=== PATIENT | male | born 1970 | race Caucasian/White ===

== ENCOUNTER 2016-12-02 11:03 | Emergency (ER) | payer SELFPAY ==
[2016-12-02 11:08] VITALS: BP 130/83
--- NOTE | 2016-12-02 11:32 | ER Document Report ---
ED General - General Chief Complaint: Anxiety Stated Complaint: FAST HEART RATE, ANXIOUS Time Seen by Provider: 12/02/16 11:17 Mode of Arrival: Ambulatory Information source: Patient Notes: 46-year-old male presents to ED for anxiety. He says he has a history of anxiety and has been out of his medication for a month. States she has decreased sleep anxious all the time. Denies any history of suicidal ideations or homicidal ideation patient is respirations even and unlabored no acute distress but is acting restless throughout the examination. He is shaking arms and legs. States he has not been able to get into see his doctor because he does not have the money to pay the dr bill since he got laid off from work. He was told he had to pay the $80 Dr. fee upfront before he could be seen. TRAVEL OUTSIDE OF THE [place] IN LAST 30 DAYS: No - HPI Onset: Other - 3 weeks Onset/Duration: Gradual, Worse Quality of pain: Other - Pain anxious, nervous, and restless Associated symptoms: Other - Anxious, nervous, and restless Exacerbated by: Denies Relieved by: Denies Similar symptoms previously: Yes Recently seen / treated by doctor: No - Related Data Allergies/Adverse Reactions: No Known Allergies Allergy (Verified 12/02/16 11:08) Past Medical History - General Information source: Patient - Social History Smoking Status: Current Every Day Smoker Cigarette use (# per day): Yes - 1/2 ppd Chew tobacco use (# tins/day): No Smoking Education Provided: Yes - less than 2 min Frequency of alcohol use: None Drug Abuse: None Lives with: Alone Family History: CAD, COPD, Hyperlipidemia, Hypertension, Malignancy Patient has suicidal ideation: No Patient has homicidal ideation: No - Past Medical History Cardiac Medical History: Reports: None Pulmonary Medical History: Reports: None EENT Medical History: Reports: None Neurological Medical History: Reports: Hx Migraine Endocrine Medical History: Reports: None Renal/ Medical History: Reports: None Malignancy Medical History: Reports None GI Medical History: Reports: Hx Diverticulitis Musculoskeltal Medical History: Reports None Psychiatric Medical History: Reports: Hx Anxiety, Other - Panic attacks Traumatic Medical History: Reports: None Infectious Medical History: Reports: None Past Surgical History: Reports: Hx Bowel Surgery - Diverticulitis - Immunizations Immunizations up to date: Yes Hx Diphtheria, Pertussis, Tetanus Vaccination: Yes Review of Systems - Review of Systems Constitutional: No symptoms reported EENT: No symptoms reported Cardiovascular: No symptoms reported Respiratory: No symptoms reported Gastrointestinal: No symptoms reported Genitourinary: No symptoms reported Male Genitourinary: No symptoms reported Musculoskeletal: No symptoms reported Skin: No symptoms reported Hematologic/Lymphatic: No symptoms reported Neurological/Psychological: Anxiety -: Yes All other systems reviewed and negative Physical Exam - Vital signs Vitals: Temp Pulse Resp BP Pulse Ox 98.9 F 66 19 130/83 H 98 12/02/16 11:06 12/02/16 11:06 12/02/16 11:06 12/02/16 11:06 12/02/16 11:06 Interpretation: Normal - General General appearance: Appears well, Alert - HEENT Head: Normocephalic, Atraumatic Eyes: Normal Pupils: PERRL - Respiratory Respiratory status: No respiratory distress Chest status: Nontender Breath sounds: Normal Chest palpation: Normal - Cardiovascular Rhythm: Regular Heart sounds: Normal auscultation Murmur: No - Abdominal Inspection: Normal Distension: No distension Bowel sounds: Normal Tenderness: Nontender Organomegaly: No organomegaly - Back Back: Normal, Nontender - Extremities General upper extremity: Normal inspection, Nontender, Normal color, Normal ROM , Normal temperature General lower extremity: Normal inspection, Nontender, Normal color, Normal ROM , Normal temperature, Normal weight bearing. No: Doug's sign - Neurological Neuro grossly intact: Yes Cognition: Normal Orientation: AAOx4 Franklin Coma Scale Eye Opening: Spontaneous Lucila Coma Scale Verbal: Oriented Lucila Coma Scale Motor: Obeys Commands Franklin Coma Scale Total: 15 Speech: Normal Motor strength normal: LUE, RUE, LLE, RLE Sensory: Normal - Psychological Associated symptoms: Normal affect, Normal mood, Agitated, Anxious, Restlessness - Skin Skin Temperature: Warm Skin Moisture: Dry Skin Color: Normal Course - Re-evaluation Re-evalutation: 12/02/16 23:[address] Nunez as patient was requesting Xanax. Dr. atkins suggested that we give the patient 1 mg of Ativan 1 and give him the mental health sheet for referrals. Patient was instructed that he would have to call someone to come and pick him up if we gave him an Ativan. Patient stated he did not want Ativan that he was okay to go home just give him his discharge papers and the referral list. Patient was given a referral list and discharged home. - Vital Signs Vital signs: Temp Pulse Resp BP Pulse Ox 98.9 F 66 19 130/83 H 98 12/02/16 11:06 12/02/16 11:06 12/02/16 11:06 12/02/16 11:06 12/02/16 11:06 Discharge - Discharge Clinical Impression: Anxiety Condition: Stable Disposition: HOME, SELF-CARE Instructions: Anxiety ([facility]) Additional Instructions: Anxiety The physician feels that some of your health problems are being caused by anxiety. Anxiety affects your health in many ways. Anxiety alone can cause palpitations, sweats, chest pains, abdominal pains, shortness of breath, and headaches. It contributes to ulcer disease, high blood pressure, irritable bowel syndrome, and has been shown to cause flare-ups of many other diseases. Anxiety is not a simple disorder to treat. If the anxiety is due to recent life stresses, you may simply need time to "work through" the changes. If the anxiety is due to an underlying unhappiness with yourself or due to psychiatric disturbance, professional help will be needed. Your physician can refer you for further help if needed. Anti-anxiety medication is occasionally given if the stress is acute or if you are having trouble sleeping. Chronic or frequent use of these medications is not a good idea because the body becomes reliant on it, preventing you from dealing with life's normal stresses. FOLLOW-UP CARE: If you have been referred to a physician for follow-up care, call the physician s office for an appointment as you were instructed or within the next two days. If you experience worsening or a significant change in your symptoms, notify the physician immediately or return to the Emergency Department at any time for re-evaluation. Forms: Elevated Blood Pressure, Smoking Cessation Education, Return to Work Referrals: [facility] [Provider Group] - Follow up as needed
== END 2016-12-02 11:45 | disposition home or self-care (01) ==
LOC: ER 11:03
DX: F41.9 Anxiety disorder, unspecified (principal); R00.0 Tachycardia, unspecified; F17.200 Nicotine dependence, unspecified, uncomplicated
CPT/HCPCS: 99283

== ENCOUNTER 2017-04-14 08:48 | Emergency (ER) | payer SELFPAY ==
[2017-04-14 08:53] VITALS: BP 135/76
[2017-04-14] MEDS ORDERED: ONDANSETRON 4 MG TAB.RAPDIS PO ONE (09:18)
[2017-04-14] MEDS ORDERED: PENICILLIN V POTASSIUM 500 MG TABLET PO ONE (09:18)
[2017-04-14] MEDS ORDERED: ACETAMINOPHEN 325 MG TABLET PO ONE (09:18)
[2017-04-14] MEDS ORDERED: IBUPROFEN 800 MG TABLET PO ONE (09:18)
[2017-04-14] MEDS ORDERED: LIDOCAINE 2% VISCOUS SOLN 20 ML UDCUP PO ONE (09:19)
--- NOTE | 2017-04-14 09:21 | ER Document Report ---
HPI - HPI Patient complains to provider of: toothache Onset: Other - Friday Onset/Duration: Persistent Pain Level: 4 Context: 46-year-old male complaining of a bump near decayed second bicuspid lower right. No fever or facial swelling. Associated Symptoms: None Exacerbated by: Denies Relieved by: Denies Similar symptoms previously: No Recently seen / treated by doctor: No - ROS ROS below otherwise negative: Yes Systems Reviewed and Negative: Yes All other systems reviewed and negative - CONSTITUTIONAL Constitutional: DENIES: Fever, Chills - NEURO Neurology: DENIES: Headache Past Medical History - General Information source: Patient - Social History Smoking Status: Current Every Day Smoker Chew tobacco use (# tins/day): No Frequency of alcohol use: None Drug Abuse: None Lives with: Family Family History: CAD, COPD, Hyperlipidemia, Hypertension, Malignancy Patient has suicidal ideation: No Patient has homicidal ideation: No Neurological Medical History: Reports: Hx Migraine Renal/ Medical History: Denies: Hx Peritoneal Dialysis GI Medical History: Reports: Hx Diverticulitis Psychiatric Medical History: Reports: Hx Anxiety Past Surgical History: Reports: Hx Bowel Surgery - Diverticulitis - Immunizations Immunizations up to date: Yes Hx Diphtheria, Pertussis, Tetanus Vaccination: Yes Vertical Provider Document - CONSTITUTIONAL Agree With Documented VS: Yes Exam Limitations: No Limitations General Appearance: No Apparent Distress - INFECTION CONTROL TRAVEL OUTSIDE OF THE [place] IN LAST 30 DAYS: No - HEENT HEENT: Normocephalic Notes: dental decay right lower 2nd bicuspid, gingival swelling - NECK Neck: Supple. negative: Lymphadenopathy-Left, Lymphadenopathy-Right - RESPIRATORY O2 Sat by Pulse Oximetry: 100 - MUSCULOSKELETAL/EXTREMETIES Musculoskeletal/Extremeties: MAEW, FROM - NEURO Level of Consciousness: Awake, Alert Motor/Sensory: No Motor Deficit, No Sensory Deficit - DERM Integumentary: Warm, Dry Course - Vital Signs Vital signs: Temp Pulse Resp BP Pulse Ox 97.8 F 81 20 135/76 H 100 04/14/17 08:52 04/14/17 08:52 04/14/17 08:52 04/14/17 08:52 04/14/17 08:52 Discharge - Discharge Clinical Impression: Dental pain and decay Condition: Good Disposition: HOME, SELF-CARE Instructions: Penicillin V K ([facility]), Toothache ([facility]), Dentist, Use of Over-The- Counter Ibuprofen ([facility]), Acetaminophen Additional Instructions: See the dentist Return to the emergency room any worsening of the symptoms Prescriptions: Penicillin V Potassium [Penicillin Vk 500 mg Tablet] 500 mg PO QID #40 tablet
== END 2017-04-14 09:35 | disposition home or self-care (01) ==
LOC: ER 08:48
DX: K02.9 Dental caries, unspecified (principal); K08.89 Other specified disorders of teeth and supporting structures; F17.200 Nicotine dependence, unspecified, uncomplicated
CPT/HCPCS: 99282; S0119; J3490

== ENCOUNTER 2018-09-19 10:52 | Emergency (ER) | payer SELFPAY ==
[2018-09-19 11:01] VITALS: BP 142/77
[2018-09-19] MEDS ORDERED: LIDOCAINE 2% VISCOUS SOLN 20 ML UDCUP PO ONE (11:48)
[2018-09-19] MEDS ORDERED: PENICILLIN V POTASSIUM 500 MG TABLET PO ONE (11:49)
--- NOTE | 2018-09-19 11:54 | ER Document Report ---
HPI - HPI Patient complains to provider of: tooth infection Time Seen by Provider: 09/19/18 11:27 Pain Level: 5 Context: 47-year-old healthy male presents to the emergency department for broken tooth and complaint of tooth infection. Says he he broke a tooth 2 weeks ago and has been tolerating it but yesterday developed acute, severe pain in the tooth causing him a headache. He denies any airway compromise, dysphagia, difficulty swallowing, is able to control his secretions, denies fevers, chills, nausea, vomiting. Denies trismus and is able to open his jaw. He does have a dental appointment on Friday. No other complaints. Past Medical History - Social History Smoking Status: Current Every Day Smoker Frequency of alcohol use: None Drug Abuse: None Family History: CAD, COPD, Hyperlipidemia, Hypertension, Malignancy Patient has suicidal ideation: No Patient has homicidal ideation: No Neurological Medical History: Reports: Hx Migraine Renal/ Medical History: Denies: Hx Peritoneal Dialysis GI Medical History: Reports: Hx Diverticulitis Psychiatric Medical History: Reports: Hx Anxiety Past Surgical History: Reports: Hx Bowel Surgery - Diverticulitis - Immunizations Immunizations up to date: Yes Hx Diphtheria, Pertussis, Tetanus Vaccination: Yes Vertical Provider Document - CONSTITUTIONAL Notes: PHYSICAL EXAMINATION: Reviewed vital signs and charting by RN GENERAL: Alert, interacts well. No acute distress. HEAD: Normocephalic, atraumatic. Broken #18 tooth with some erythema of the gingiva and exposed dentin and root. EYES: Pupils equal, round, and reactive to light. Extraocular movements intact. ENT: Oral mucosa moist, tongue midline. NECK: Full range of motion. Supple. Trachea midline. EXTREMITIES: Moves all 4 extremities spontaneously. No edema, No cyanosis. PSYCH: Normal affect, normal mood. SKIN: Warm, dry, normal turgor. No rashes or lesions noted. - INFECTION CONTROL TRAVEL OUTSIDE OF THE [place] IN LAST 30 DAYS: No Course - Re-evaluation Re-evalutation: 09/19/18 11:52 Presentation is most consistent with likely an infected tooth. Airway is patent. Vitals within normal limits. Patient is able swallow without any difficulty. There is no significant facial swelling. No evidence of Salty angina, apical abscess, or airway obstruction. Patient will be started on antibiotics. I've instructed to follow-up with dentistry as earliest ability for definitive management. At this time will discharge with return precautions and follow-up recommendations. Verbal discharge instructions given a the bedside and opportunity for questions given. Medication warnings reviewed. Patient is in agreement with this plan and has verbalized understanding of return precautions and the need for primary care follow-up in the next 24-72 hours. - Vital Signs Vital signs: Temp Pulse Resp BP Pulse Ox 97.6 F 60 16 142/77 H 99 09/19/18 11:00 09/19/18 11:00 09/19/18 11:00 09/19/18 11:00 09/19/18 11:00 Discharge - Discharge Clinical Impression: Dental infection Broken tooth Qualifiers: Encounter type: initial encounter Fracture type: open Qualified Code(s): S02.5XXB - Fracture of tooth (traumatic), initial encounter for open fracture Condition: Good Disposition: HOME, SELF-CARE Instructions: Penicillin V K ([facility]), Toothache ([facility]) Additional Instructions: You have been seen for dental pain. It is very important that you follow-up with a dentist for definitive care. Please take the penicillin 4 times a day for 7 days or until your dentist tells you otherwise when you go to your appointment on Friday. Please return if you develop fever greater than 101, swelling in your face, vomiting, difficulty breathing or swallowing, or any other symptoms that are concerning to you. For pain you should take ibuprofen 600 mg every 6 hours as needed. Prescriptions: Penicillin V Potassium [Penicillin Vk 500 mg Tablet] 500 mg PO QID #28 tablet
== END 2018-09-19 12:02 | disposition home or self-care (01) ==
LOC: ER 10:52
DX: K04.7 Periapical abscess without sinus (principal); S02.5XXB Fracture of tooth (traumatic), initial encounter for open fracture; X58.XXXA Exposure to other specified factors, initial encounter; F17.200 Nicotine dependence, unspecified, uncomplicated
CPT/HCPCS: 99282; J3490